=== PATIENT | female | born 1970 | race African-American/Black ===

== ENCOUNTER 2016-11-21 14:32 | Emergency (ER) | payer OTHER ==
[2016-11-21] MEDS ORDERED: LIDOCAINE 5% (700 MG) TRANSDERMAL ADH..PATCH TP ONE (15:01)
[2016-11-21 15:44] LABS: ANION GAP 10 (5-19); BLOOD UREA NITROGEN 10 mg/dL (7-20); CALCIUM 9.1 mg/dL (8.4-10.2); CARBON DIOXIDE 29 mmol/L (22-30); CHLORIDE 106 mmol/L (98-107); CREATINE KINASE 176 U/L (30-135); CREATININE RESULT 0.81 mg/dL (0.52-1.25); GLUCOSE 123 mg/dL (75-110); MAGNESIUM 1.8 mg/dL (1.6-2.3); POTASSIUM 4.2 mmol/L (3.6-5.0); SODIUM 145.1 mmol/L (137-145)
--- NOTE | 2016-11-21 16:09 | ER Document Report ---
ED General - General Chief Complaint: Leg Pain Stated Complaint: LEG PAIN TRAVEL OUTSIDE OF THE [place] IN LAST 30 DAYS: No - HPI Patient complains to provider of: right leg cramping pain Notes: Patient states right leg cramping and pain ongoing for approximately one week. Patient does state some increased activity. Patient denies any recent travel denies history of blood clots PE DVT. Patient states pain is behind the knee is up and down her leg. Denies any swelling. - Related Data Allergies/Adverse Reactions: No Known Allergies Allergy (Verified 11/21/16 14:34) Past Medical History - Social History Smoking Status: Unknown if Ever Smoked Family History: Reviewed & Not Pertinent Patient has suicidal ideation: No Patient has homicidal ideation: No Renal/ Medical History: Denies: Hx Peritoneal Dialysis GI Medical History: Reports: Hx Gastroesophageal Reflux Disease Past Surgical History: Reports: Hx Section - x1 - Immunizations Hx Diphtheria, Pertussis, Tetanus Vaccination: Yes Review of Systems - Review of Systems Constitutional: No symptoms reported EENT: No symptoms reported Cardiovascular: No symptoms reported Respiratory: No symptoms reported Gastrointestinal: No symptoms reported Genitourinary: No symptoms reported Female Genitourinary: No symptoms reported Musculoskeletal: Other - Leg pain Skin: No symptoms reported Hematologic/Lymphatic: No symptoms reported Neurological/Psychological: No symptoms reported Physical Exam - Vital signs Vitals: Temp Pulse Resp BP Pulse Ox 98.2 F 84 16 134/80 H 98 11/21/16 14:36 11/21/16 14:36 11/21/16 14:36 11/21/16 14:36 11/21/16 14:36 Interpretation: Normal - General General appearance: Appears well, Alert - HEENT Head: Normocephalic, Atraumatic Eyes: Normal Pupils: PERRL - Respiratory Respiratory status: No respiratory distress Chest status: Nontender Breath sounds: Normal Chest palpation: Normal - Cardiovascular Rhythm: Regular Heart sounds: Normal auscultation Murmur: No - Abdominal Inspection: Normal Distension: No distension Bowel sounds: Normal Tenderness: Nontender Organomegaly: No organomegaly - Back Back: Normal, Nontender - Extremities General upper extremity: Normal inspection, Nontender, Normal color, Normal ROM , Normal temperature General lower extremity: Normal color, Normal ROM, Normal temperature, Normal weight bearing, Other - Please refer to nursing notes for measurements of the legs. Mild tenderness to the fossa of the knee.. No: Erin's sign Left calf in cm: 40 Right calf in cm: 41 - Neurological Neuro grossly intact: Yes Cognition: Normal Orientation: AAOx4 [place] Coma Scale Eye Opening: Spontaneous [place] Coma Scale Verbal: Oriented [place] Coma Scale Motor: Obeys Commands [place] Coma Scale Total: 15 Speech: Normal Motor strength normal: LUE, RUE, LLE, RLE Sensory: Normal - Psychological Associated symptoms: Normal affect, Normal mood - Skin Skin Temperature: Warm Skin Moisture: Dry Skin Color: Normal Course - Re-evaluation Re-evalutation: 11/21/16 16:32 Bedside ultrasound shows compressibility of the popliteal vein behind the right knee. No signs of DVT. Lab work shows elevated sodium mildly elevated CK. Spent patient more likely dehydration will be the etiology of her cramping. Patient is to follow-up with her primary care physician patient was given a prescription of Flexeril warnings were given to the patient patient discharged home - Vital Signs Vital signs: Temp Pulse Resp BP Pulse Ox 98.2 F 84 16 134/80 H 98 11/21/16 14:36 11/21/16 14:36 11/21/16 14:36 11/21/16 14:36 11/21/16 14:36 - Laboratory Result Diagrams: 11/21/16 15:07 Laboratory results interpreted by me: 11/21/16 15:07 Sodium 145.1 H Glucose 123 H Creatine Kinase 176 H Discharge - Discharge Clinical Impression: Leg pain Qualifiers: Laterality: unspecified laterality Qualified Code(s): M79.606 - Pain in leg, unspecified Condition: Good Disposition: HOME, SELF-CARE Instructions: Leg Cramps ([facility]), Leg Pain Nonspecific ([facility]) Additional Instructions: Your laboratory today shows signs of dehydration. More likely etiology of your leg cramps and pain Please be sure you drink plenty of water to stay hydrated. You may take medication as prescribed. Please be aware that the Flexeril will make you sleepy. Otherwise you may take Tylenol Motrin for pain. Bedside ultrasound today shows no signs of DVT either. Prescriptions: Cyclobenzaprine HCl [Flexeril 10 mg Tablet] 10 mg PO TIDP PRN #15 tab PRN Reason: Forms: Return to Work
[2016-11-21 16:32] VITALS: BP 126/61
== END 2016-11-21 16:13 | disposition home or self-care (01) ==
LOC: ER 14:32
DX: M79.604 Pain in right leg (principal); R25.2 Cramp and spasm
CPT/HCPCS: 36415; 80048; 82550; 83735; 99283

== ENCOUNTER 2017-07-10 13:45 | Emergency (ER) | payer OTHER ==
[2017-07-10 14:07] VITALS: BP 131/71
--- NOTE | 2017-07-10 15:47 | ER Document Report ---
ED Extremity Problem, Lower - General Chief Complaint: Leg Pain Stated Complaint: LEG PAIN Time Seen by Provider: 07/10/17 15:01 Mode of Arrival: Ambulatory Information source: Patient Notes: 46-year-old female presents to ED for complaint of pain and cramping in her right calf up to her knee. She states it has been occurring intermittently. She states that the pain is worse when she goes on a trip such as a bus ride. She states she went to [place] this weekend. She states she has not seen her primary care doctor for this pain. She was also seen in the emergency room for similar complaints in November. Was instructed to follow-up with her primary doctor. TRAVEL OUTSIDE OF THE [place] IN LAST 30 DAYS: No - HPI Patient complains to provider of: Pain Location: Leg - Right calf Occurred: Last week Onset/Duration: Intermittent Quality of pain: Cramping Severity: Moderate Pain Level: 4 Recent injury: No Associated symptoms: Painful ambulation Exacerbated by: Other - When riding on trips Relieved by: Nothing - Related Data Allergies/Adverse Reactions: No Known Allergies Allergy (Verified 07/10/17 14:07) Past Medical History - General Information source: Patient - Social History Smoking Status: Never Smoker Cigarette use (# per day): No Chew tobacco use (# tins/day): No Frequency of alcohol use: None Drug Abuse: None Lives with: Family Family History: Reviewed & Not Pertinent Patient has suicidal ideation: No Patient has homicidal ideation: No - Past Medical History Cardiac Medical History: Reports: None Pulmonary Medical History: Reports: None EENT Medical History: Reports: None Neurological Medical History: Reports: None Endocrine Medical History: Reports: None Renal/ Medical History: Reports: None Malignancy Medical History: Reports: None GI Medical History: Reports: Hx Gastroesophageal Reflux Disease Musculoskeltal Medical History: Reports None Skin Medical History: Reports None Psychiatric Medical History: Reports: None Traumatic Medical History: Reports: None Infectious Medical History: Reports: None Past Surgical History: Reports: Hx Section - x1 - Immunizations Immunizations up to date: Yes Hx Diphtheria, Pertussis, Tetanus Vaccination: Yes Review of Systems - Review of Systems Constitutional: No symptoms reported EENT: No symptoms reported Cardiovascular: No symptoms reported Respiratory: No symptoms reported Gastrointestinal: No symptoms reported Genitourinary: No symptoms reported Female Genitourinary: No symptoms reported Musculoskeletal: Other - Right calf and leg pain and cramping Skin: No symptoms reported Hematologic/Lymphatic: No symptoms reported Neurological/Psychological: No symptoms reported -: Yes All other systems reviewed and negative Physical Exam - Vital signs Vitals: Temp Pulse Resp BP Pulse Ox 98.7 F 72 16 131/71 H 98 07/10/17 14:03 07/10/17 14:03 07/10/17 14:03 07/10/17 14:03 07/10/17 14:03 Interpretation: Normal - General General appearance: Appears well, Alert - HEENT Head: Normocephalic, Atraumatic Eyes: Normal Pupils: PERRL - Respiratory Respiratory status: No respiratory distress Chest status: Nontender Breath sounds: Normal Chest palpation: Normal - Cardiovascular Rhythm: Regular Heart sounds: Normal auscultation Murmur: No - Abdominal Inspection: Normal Distension: No distension Bowel sounds: Normal Tenderness: Nontender Organomegaly: No organomegaly - Back Back: Normal, Nontender - Extremities General upper extremity: Normal inspection, Nontender, Normal color, Normal ROM , Normal temperature General lower extremity: Normal inspection, Normal color, Normal ROM, Normal temperature, Normal weight bearing. No: Erin's sign Calf: Tender - Right calf, Other - Legs are equal in size mild edema to both legs no redness or inflammation Ankle: Edema - Bilateral Foot: Edema - Bilateral - Neurological Neuro grossly intact: Yes Cognition: Normal Orientation: AAOx4 [place] Coma Scale Eye Opening: Spontaneous [place] Coma Scale Verbal: Oriented [place] Coma Scale Motor: Obeys Commands [place] Coma Scale Total: 15 Speech: Normal Motor strength normal: LUE, RUE, LLE, RLE Sensory: Normal - Psychological Associated symptoms: Normal affect, Normal mood - Skin Skin Temperature: Warm Skin Moisture: Dry Skin Color: Normal Course - Re-evaluation Re-evalutation: 07/10/17 22:15 Venous Doppler negative to the right lower leg. D-dimer was 0.6. Patient was discharged home with a copy of her labs and her d-dimer reports that she can follow-up with her primary doctor. - Vital Signs Vital signs: Temp Pulse Resp BP Pulse Ox 98.7 F 72 16 131/71 H 98 07/10/17 14:03 07/10/17 14:03 07/10/17 14:03 07/10/17 14:03 07/10/17 14:03 - Laboratory Result Diagrams: 07/10/17 15:33 Laboratory results interpreted by me: 07/10/17 15:33 D-Dimer 0.60 H - Diagnostic Test Radiology reviewed: Image reviewed, Reports reviewed Discharge - Discharge Clinical Impression: Cramps of right lower extremity Condition: Stable Disposition: HOME, SELF-CARE Additional Instructions: Leg Cramps There are many causes of leg cramps. Most of the time, there is no underlying serious medical condition. Calf muscle cramps that occur at rest or during the night are a nuisance, but are usually not caused by any serious medical problem. Leg cramps that occur during exercise (walking, stair climbing) can be caused by poor circulation. Cramping is more likely to occur if the legs swell. Over-exercise or overheating can cause muscle spasms even with good circulation. Cramp-like muscle pain can be an early symptom of blood clots in the lower leg. Sometimes cramping is due to a previous muscle injury. Occasionally cramping is a symptom of dehydration or of low levels of sodium, potassium, calcium or magnesium. When a cramp occurs, stretch gently and massage the cramped muscle. Get enough fluids, potassium, and sodium for the muscle to work normally. Avoid strenuous exercise for several days if you've been having frequent leg cramps. Medicines such a quinine may be helpful in some patients with night cramps. Call the doctor or return if you develop redness, swelling, bruising, or increased pain in the leg, or if the foot becomes cold, numb, pale, or discolored. Acetaminophen Acetaminophen may be taken for pain relief or fever control. It's much safer than aspirin, offering a wider range of "safe" dosages. It is safe during . Some brand names are Tylenol, Panadol, Datril, Anacin 3, Tempra, and Liquiprin. Acetaminophen can be repeated every four hours. The following are maximum recommended dosages: WEIGHT Dose Drops Elixir Chewable( 80mg) (LBS.) drprs=droppers tsp=teaspoon 6 40 mg .4 ml (1/2) 6-11 80 mg .8 ml (full) 1/2 tsp 1 tab 12-16 120 mg 1 1/2 drprs 3/4 tsp 1 1/2 tabs 17-23 160 mg 2 drprs 1 tsp 2 tabs 24-30 240 mg 3 drprs 1 1/2 tsp 3 tabs 30-35 320 mg 2 tsp 4 tabs 36-41 360 mg 2 1/4 tsp 4 1 /2 tabs 42-47 400 mg 2 1/2 tsp 5 tabs 48-53 480 mg 3 tsp 6 tabs 54-59 520 mg 3 1/4 tsp 6 1 /2 tabs 60-64 560 mg 3 1/2 tsp 7 tabs 65-70 600 mg 3 3/4 tsp 7 1 /2 tabs 71-76 640 mg 4 tsp 8 tabs 77-82 720 mg 4 1/2 tsp 9 tabs 83-88 800 mg 5 tsp 10 tabs >89 pounds or adults 650 mg to 900 mg Acetaminophen can be repeated every four hours. Maximum daily dose not to exceed 4000 mg. These maximum recommended dosages are slightly higher than the dosages written on the product container, but these dosages are very safe and well below the toxic dosage for acetaminophen. Elevate the legs Elevation will be helpful to reduce swelling. Elevate the legs to above the level of your heart this will help to return the fluid to your heart from your legs. A copy of your venous Doppler report and your lab reports have been given to you for you to follow-up with your primary doctor. Please take these with you to your primary doctor appointment. FOLLOW-UP CARE: If you have been referred to a physician for follow-up care, call the physician s office for an appointment as you were instructed or within the next two days. If you experience worsening or a significant change in your symptoms, notify the physician immediately or return to the Emergency Department at any time for re-evaluation. Forms: Elevated Blood Pressure Referrals: JENS ODEN MD [Primary Care Provider] - Follow up as needed
[2017-07-10 16:06] LABS: ANION GAP 11 (5-19); BLOOD UREA NITROGEN 10 mg/dL (7-20); CARBON DIOXIDE 27 mmol/L (22-30); CHLORIDE 104 mmol/L (98-107); CREATININE RESULT 0.74 mg/dL (0.52-1.25); GLUCOSE 87 mg/dL (75-110); POTASSIUM 4.1 mmol/L (3.6-5.0); SODIUM 142.2 mmol/L (137-145)
--- NOTE | 2017-07-10 18:46 | RADIOLOGY REPORT (SQ) ---
EXAM DESCRIPTION: VENOUS UNILATERAL LOWER COMPLETED DATE/TIME: 07/10/2017 6:36 pm REASON FOR STUDY: pain to right lower leg d dimer .6 COMPARISON: None. TECHNIQUE: Dynamic and static heller scale and color images acquired of the right leg venous system. S elected spectral images acquired with additional compression and augmentation maneuvers. The contrala teral common femoral vein and saphenofemoral junction were also imaged. Images stored on PACS. LIMITATIONS: None. FINDINGS: COMMON FEMORAL: Normal phasicity, compression and augmentation. No visualized echogenic ma terial on heller scale. No defects on color images. FEMORAL: Normal compression and augmentation. No visualized echogenic material on heller scale. No defe cts on color images. POPLITEAL: Normal compression, augmentation. No visualized echogenic material on heller scale. No defec ts on color images. CALF VESSELS: Normal compression, augmentation. No visualized echogenic material on heller scale. No de fects on color images. GSV and SSV: Normal compression, augmentation. No visualized echogenic material on heller scale. No def ects on color images. ANY DEEP VENOUS INSUFFICIENCY: Not evaluated. ANY EVIDENCE OF POPLITEAL CYST: No. OTHER: No other significant finding. CONTRALATERAL COMMON FEMORAL VEIN AND SAPHENOFEMORAL JUNCTION: Normal phasicity, compression and augmentation. No visualized echogenic material on heller scale. No de fects on color images. IMPRESSION: NO EVIDENCE DVT OR SVT IN THE RIGHT LEG. TECHNICAL DOCUMENTATION: JOB ID: [id number] [employer]- All Rights Reserved
== END 2017-07-10 19:24 | disposition home or self-care (01) ==
LOC: ER 13:45
DX: R25.2 Cramp and spasm (principal); M79.604 Pain in right leg
CPT/HCPCS: 36415; 80048; 85379; 93971; 99284

== ENCOUNTER 2018-10-20 20:34 | Emergency (ER) | payer OTHER ==
[2018-10-20] MEDS ORDERED: METOCLOPRAMIDE HCL INJ/PF 10 MG/2 ML SDV IV ONE (23:21)
[2018-10-20 23:40] LABS: ABSOLUTE EOSINOPHILS # (AUTO) 0.1 10^3/uL (0.0-0.6); ABSOLUTE MONOCYTES (AUTO) 0.7 10^3/uL (0.1-1.4); ABSOLUTE NEUT (AUTO) 4.1 10^3/uL (1.7-8.2); BASOPHILS % (AUTO) 0.2 % (0-2); EOSINOPHILS % (AUTO) 1.2 % (0-6); HEMATOCRIT 36.2 % (36.0-47.0); HEMOGLOBIN 11.9 g/dL (12.0-15.5); LYMPHOCYTES % (AUTO) 29.8 % (13-45); MEAN CORPUSCULAR HEMOGLOBIN 26.9 pg (27.0-33.4); MEAN CORPUSCULAR HGB CONC 32.9 g/dL (32.0-36.0); MEAN CORPUSCULAR VOLUME 82 fl (80-97); MONOCYTES % (AUTO) 9.7 % (3-13); PLATELET COUNT 371 10^3/uL (150-450); RED BLOOD COUNT 4.43 10^6/uL (3.72-5.28); RED CELL DISTRIBUTION WIDTH 15.9 % (11.5-14.0); SEGMENTED NEUTROPHILS % (AUTO) 59.1 % (42-78); TOTAL CELLS COUNTED % (AUTO) 100 %; WHITE BLOOD COUNT 6.9 10^3/uL (4.0-10.5)
[2018-10-20 23:57] LABS: ANION GAP 8 (5-19); BLOOD UREA NITROGEN 14 mg/dL (7-20); CALCIUM 9.3 mg/dL (8.4-10.2); CARBON DIOXIDE 27 mmol/L (22-30); CHLORIDE 103 mmol/L (98-107); GLUCOSE 106 mg/dL (75-110)
[2018-10-21] MEDS ORDERED: MECLIZINE HCL 25 MG TABLET PO ONE (01:05)
--- NOTE | 2018-10-21 01:06 | ER Document Report ---
ED General - General Chief Complaint: Headache Stated Complaint: SEVERE HEADACHES,DIZZINESS Time Seen by Provider: 10/20/18 23:20 Primary Care Provider: JENS ODEN MD [Primary Care Provider] - Follow up in 3-5 days Notes: Patient is a 48-year-old female without chronic medical problems presents with 2 weeks of multiple complaints. Her first complaint is a sensation of feeling like she is on a boat where she feels somewhat unsteady or like she is moving when she is not. She states this can occur randomly whether she is sitting standing or active. She states that it happened tonight while at [facility] ompting her to come to the emergency department. She also notes intermittent headaches particular after she eats salty food. She describes these as global, throbbing, mild to severe headaches similar to when she has had headaches in the past. These headaches do spontaneously resolve without treatment. She also notes that she frequently has a nighttime cough and feels that she has postnasal drip. Also notes an abnormal taste in her mouth particularly at night. She denies any focal weakness, numbness, difficulty walking, visual changes, or confusion. No history of similar symptoms in the past. Has not seen her primary care physician regarding today's concerns. TRAVEL OUTSIDE OF THE [place] IN LAST 30 DAYS: No - Related Data Allergies/Adverse Reactions: No Known Allergies Allergy (Verified 07/10/17 14:07) Past Medical History - General Information source: Patient - Social History Smoking Status: Never Smoker Frequency of alcohol use: None Drug Abuse: None Lives with: Spouse/Significant other Family History: Reviewed & Not Pertinent Renal/ Medical History: Denies: Hx Peritoneal Dialysis GI Medical History: Reports: Hx Gastroesophageal Reflux Disease Past Surgical History: Reports: Hx Section - x1 - Immunizations Immunizations up to date: Yes Hx Diphtheria, Pertussis, Tetanus Vaccination: Yes Review of Systems - Review of Systems Notes: Constitutional: Negative for fever. HENT: Positive for nasal congestion Eyes: Negative for visual changes. Cardiovascular: Negative for chest pain. Respiratory: Negative for shortness of breath. Gastrointestinal: Negative for abdominal pain, vomiting or diarrhea. Genitourinary: Negative for dysuria. Musculoskeletal: Negative for back pain. Skin: Negative for rash. Neurological: Positive for headaches, positive for sensation of movement 10 point ROS negative except as marked above and in HPI. Physical Exam - Vital signs Vitals: Temp Pulse Resp BP Pulse Ox 98.2 F 76 18 149/69 H 100 10/20/18 20:50 10/20/18 20:50 10/20/18 20:50 10/20/18 20:50 10/20/18 20:50 Interpretation: Hypertensive Notes: PHYSICAL EXAMINATION: GENERAL: Well-appearing, well-nourished and in no acute distress. HEAD: Atraumatic, normocephalic. EYES: Pupils equal round and reactive to light, extraocular movements intact, sclera anicteric, conjunctiva are normal. ENT: nares patent, oropharynx clear without exudates. Moist mucous membranes. NECK: Normal range of motion, supple without lymphadenopathy LUNGS: Breath sounds clear to auscultation bilaterally and equal. No wheezes rales or rhonchi. HEART: Regular rate and rhythm without murmurs ABDOMEN: Soft, nontender, normoactive bowel sounds. No guarding, no rebound. No masses appreciated. EXTREMITIES: Normal range of motion, no pitting or edema. No cyanosis. NEUROLOGICAL: Face symmetric. Tongue protrudes midline. Extraocular motions intact. Pupils are 2 mm and equally reactive. Normal speech, normal gait. 5 out of 5 strength in both the distal and proximal upper and lower extremities bilaterally. Sensation is grossly intact throughout. Finger to nose testing normal. Pronator drift normal. PSYCH: Normal mood, normal affect. SKIN: Warm, Dry, normal turgor, no rashes or lesions noted. Course - Re-evaluation Re-evalutation: 10/21/18 01:03 Presentation of vertigo that appears most consistent with a benign peripheral vertigo. Patient has no abnormal findings on exam. Normal cerebellar testing, steady even gait. Able to walk on heels and toes. Normal proprioception. Patient is not an elevated risk for a cerebellar infarction given age, absence of significant risk factors. Patient did have improvement of symptoms here in the emergency department with meclizine. Suspect likely acute vestibular neuritis versus sinus issues. I do not believe neurologic imaging is indicated at this time based on physical examination and clinical history. At this time will discharge with return precautions and follow-up recommendations. Verbal discharge instructions given a the bedside and opportunity for questions given. Medication warnings reviewed. Patient is in agreement with this plan and has verbalized understanding of return precautions and the need for primary care follow-up in the next 24-72 hours. - Vital Signs Vital signs: Temp Pulse Resp BP Pulse Ox 98.3 F 74 16 134/67 H 97 10/21/18 01:15 10/21/18 01:15 10/21/18 01:15 10/21/18 01:15 10/21/18 01:15 - Laboratory Result Diagrams: 10/20/18 23:30 10/20/18 23:30 Laboratory results interpreted by me: 10/20/18 23:30 Hgb 11.9 L MCH 26.9 L RDW 15.9 H Discharge - Discharge Clinical Impression: Vertigo Vestibular neuritis Qualifiers: Laterality: bilateral Qualified Code(s): H81.23 - Vestibular neuronitis, bi lateral Sinusitis Qualifiers: Sinusitis location: unspecified location Chronicity: acute Recurrence: not specified as recurrent Qualified Code(s): J01.90 - Acute sinusitis, unspecified Allergic rhinitis Qualifiers: Allergic rhinitis trigger: unspecified Allergic rhinitis seasonality: unspecified Qualified Code(s): J30.9 - Allergic rhinitis, unspecified Condition: Good Disposition: HOME, SELF-CARE Additional Instructions: You were seen today for lightheadedness/dizziness. The exact cause of your symptoms is unclear but your workup here is reassuring without any concerning findings. Please follow closely with your primary care physician in the next 1- 3 days. Take cetirizine 10 mg daily, Flonase as directed on box instructions. You may purchase these medications directed [id number]. Use the meclizine which have been prescribed as needed for a sensation of abnormal movement. Return if you pass out, have additional episodes of lightheadedness, develop weakness/numbness, have persistent vomiting, chest pain, shortness of breath or any other symptoms that are concerning to you Prescriptions: Meclizine HCl [Motion Relief] 25 mg PO Q6HP PRN #30 tablet PRN Reason: Referrals: JENS ODEN MD [Primary Care Provider] - Follow up in 3-5 days
[2018-10-21 01:16] VITALS: BP 134/67
== END 2018-10-21 01:39 | disposition home or self-care (01) ==
LOC: ER 20:34
DX: H81.23 Vestibular neuronitis, bilateral (principal); J01.90 Acute sinusitis, unspecified; J30.9 Allergic rhinitis, unspecified; R51 Headache; R05 Cough; R09.82 Postnasal drip; R09.81 Nasal congestion
CPT/HCPCS: 36415; 80048; 84703; 85025; 99284

== ENCOUNTER 2019-08-19 20:55 | Emergency (ER) | payer OTHER ==
[2019-08-19] MEDS ORDERED: ASPIRIN 81 MG TABLET, CHEWABLE PO ONE (21:40)
--- NOTE | 2019-08-19 21:43 | ER Document Report ---
ED Medical Screen (RME) - General Chief Complaint: Shortness Of Breath Stated Complaint: DIFFICULTY BREATHING Time Seen by Provider: 08/19/19 21:40 Primary Care Provider: JENS ODEN MD [Primary Care Provider] - Follow up as needed Mode of Arrival: Wheelchair Information source: Patient Notes: 49-year-old female presented to ED for complaint of shortness of breath intermittent chest tightness for a month and a half. She saw her PCM before and is scheduled a cardiology appointment on Tuesday. She states tonight she had tightness in her chest just before coming to the emergency room as well as increasing shortness of breath. She decided she needed to come in and get checked out as this was worse than normal. She is prediabetic and is on metformin 500 mg a day and one baby aspirin a day. States she does not smoke drink or use any kind of illicit drugs. She does live with her family. I have greeted and performed a rapid initial assessment of this patient. A comprehensive ED assessment and evaluation of the patient, analysis of test results and completion of medical decision making process will be conducted by an additional ED providers. TRAVEL OUTSIDE OF THE [place] IN LAST 30 DAYS: No - Related Data Allergies/Adverse Reactions: No Known Allergies Allergy (Verified 07/10/17 14:07) Past Medical History Renal/ Medical History: Denies: Hx Peritoneal Dialysis GI Medical History: Reports: Hx Gastroesophageal Reflux Disease Past Surgical History: Reports: Hx Section - x1 - Immunizations Immunizations up to date: Yes Hx Diphtheria, Pertussis, Tetanus Vaccination: Yes Physical Exam - Vital signs Vitals: Temp Pulse Resp BP Pulse Ox 98.9 F 78 20 150/76 H 100 08/19/19 20:59 08/19/19 20:59 08/19/19 20:59 08/19/19 20:59 08/19/19 20:59 Course - Vital Signs Vital signs: Temp Pulse Resp BP Pulse Ox 98.9 F 78 20 150/76 H 100 08/19/19 20:59 08/19/19 20:59 08/19/19 20:59 08/19/19 20:59 08/19/19 20:59 Doctor's Discharge - Discharge Referrals: JENS ODEN MD [Primary Care Provider] - Follow up as needed
--- NOTE | 2019-08-19 22:30 | RADIOLOGY REPORT (SQ) ---
EXAM DESCRIPTION: XR CHEST 2 VIEWS COMPLETED DATE/TME: 08/19/2019 21:40 CLINICAL HISTORY: 49 years, Female, short of breath chest tightness COMPARISON: None. NUMBER OF VIEWS: Two TECHNIQUE: Frontal and lateral radiograph are obtained LIMITATIONS: None. FINDINGS: Cardiac and mediastinal contours are normal. Lungs are clear. No pleural effusion or pneumothorax. IMPRESSION: No acute disease. copyright 2010 [employer]- All Rights Reserved
[2019-08-19 22:53] LABS: ABSOLUTE BASOPHILS # (AUTO) 0.1 10^3/uL (0.0-0.2); ABSOLUTE EOSINOPHILS # (AUTO) 0.1 10^3/uL (0.0-0.6); ABSOLUTE LYMPHOCYTES (AUTO) 2.9 10^3/uL (0.5-4.7); ABSOLUTE MONOCYTES (AUTO) 0.7 10^3/uL (0.1-1.4); BASOPHILS % (AUTO) 0.8 % (0-2); EOSINOPHILS % (AUTO) 0.9 % (0-6); HEMATOCRIT 39.2 % (36.0-47.0); HEMOGLOBIN 12.9 g/dL (12.0-15.5); LYMPHOCYTES % (AUTO) 29.3 % (13-45); MEAN CORPUSCULAR HGB CONC 32.9 g/dL (32.0-36.0); MEAN CORPUSCULAR VOLUME 85 fl (80-97); MONOCYTES % (AUTO) 7.6 % (3-13); RED BLOOD COUNT 4.61 10^6/uL (3.72-5.28); SEGMENTED NEUTROPHILS % (AUTO) 61.4 % (42-78); TOTAL CELLS COUNTED % (AUTO) 100 %; WHITE BLOOD COUNT 9.8 10^3/uL (4.0-10.5)
[2019-08-19 23:10] LABS: ALBUMIN 4.1 g/dL (3.5-5.0); ALKALINE PHOSPHATASE 64 U/L (38-126); ANION GAP 11 (5-19); ASPARTATE AMINO TRANSFERASE 17 U/L (14-36); BILIRUBIN,DIRECT 0.3 mg/dL (0.0-0.4); BILIRUBIN,TOTAL 0.4 mg/dL (0.2-1.3); BLOOD UREA NITROGEN 16 mg/dL (7-20); CALCIUM 9.2 mg/dL (8.4-10.2); CARBON DIOXIDE 25 mmol/L (22-30); CHLORIDE 103 mmol/L (98-107); GLUCOSE 98 mg/dL (75-110); TOTAL PROTEIN 7.9 g/dL (6.3-8.2)
[2019-08-19 23:23] LABS: PLATELET COUNT 224 10^3/uL (150-450)
--- NOTE | 2019-08-19 23:41 | ER Document Report ---
ED General - General Chief Complaint: Shortness Of Breath Stated Complaint: DIFFICULTY BREATHING Time Seen by Provider: 08/19/19 21:40 Primary Care Provider: JENS ODEN MD [Primary Care Provider] - Follow up as needed Mode of Arrival: Wheelchair Information source: Patient TRAVEL OUTSIDE OF THE [place] IN LAST 30 DAYS: No - HPI Onset: Other - over the last 2-3 months Onset/Duration: Gradual Quality of pain: Pressure Severity: Moderate Pain Level: 2 Associated symptoms: Nausea, Shortness of breath Exacerbated by: Other - exertion Relieved by: Other - rest Similar symptoms previously: No Recently seen / treated by doctor: Yes - patient saw her PCP before and referred to Cards - apt in 2 days Notes: 49 year old female with a history of HTN and Obesity here for 1-2 months of spells of shortness of breath along with some chest tightness/squeezing. The patient says the spells are happening more frequently and are nearly every day now. The patient denies radiation of the chest tightness. The patient saw her PCP before and she had an EKG showing sinus bradycardia and she was referred to Cardiology but her appointment isnt for 2 days and today she felt worse so she came to the ER. The patient had some mild nausea today with the SOB and chest pressure. The patient denies fevers, chills, sweats, vomiting, cough. - Related Data Allergies/Adverse Reactions: No Known Allergies Allergy (Verified 07/10/17 14:07) Home Medications: asa 81 mg qday. metformin 500 mg qday Past Medical History - General Information source: Patient - Social History Smoking Status: Never Smoker Frequency of alcohol use: None Drug Abuse: None Lives with: Family Family History: Reviewed & Not Pertinent Patient has suicidal ideation: No Patient has homicidal ideation: No Endocrine Medical History: Reports: Hx Diabetes Mellitus Type 2 Renal/ Medical History: Denies: Hx Peritoneal Dialysis GI Medical History: Reports: Hx Gastroesophageal Reflux Disease Past Surgical History: Reports: Hx Section - x1 - Immunizations Immunizations up to date: Yes Hx Diphtheria, Pertussis, Tetanus Vaccination: Yes Review of Systems - Review of Systems Cardiovascular: Chest pain Respiratory: Short of breath Gastrointestinal: Nausea -: Yes All other systems reviewed and negative Physical Exam - Vital signs Vitals: Temp Pulse Resp BP Pulse Ox 98.9 F 78 20 150/76 H 100 01/05/20 20:59 08/19/19 20:59 08/19/19 20:59 08/19/19 20:59 08/19/19 20:59 - Notes Notes: GENERAL: Well-appearing, well-nourished and in no acute distress. HEAD: Atraumatic, normocephalic. EYES: Pupils equal round and reactive to light, extraocular movements intact, sclera anicteric, conjunctiva are normal. ENT: TMs normal, nares patent, oropharynx clear without exudates. Moist mucous membranes. NECK: Normal range of motion, supple without lymphadenopathy or JVD. LUNGS: Breath sounds clear to auscultation bilaterally and equal. No wheezes rales or rhonchi. HEART: Regular rate and rhythm without murmurs, rubs or gallops. ABDOMEN: Soft, nontender, normoactive bowel sounds. No guarding, no rebound. No masses appreciated. EXTREMITIES: Normal range of motion, no pitting or edema. No clubbing or cyanosis. NEUROLOGICAL: Cranial nerves II through XII grossly intact. Normal speech, normal gait. PSYCH: Normal mood, normal affect. SKIN: Warm, Dry, normal turgor, no rashes or lesions noted. Course - Re-evaluation Re-evalutation: 08/20/19 01:50 The patient is here for several months of shortness of breath spells which now seem to have a component of chest pressure/tightness with them. The patient is PERC Negative making PE unlikely. The patient has DM but otherwise no other CAD risk factors. The patient is describing symptoms which could be concerning for CAD however so I encouraged her to follow up as she is scheduled to do so this Tuesday with Cardiology. The patient should have an outpatient cardiac stress test and she was told this. No need to admit today based on her exam and work up. - Vital Signs Vital signs: Temp Pulse Resp BP Pulse Ox 98.9 F 78 21 H 117/52 L 100 08/19/19 20:59 08/19/19 20:59 08/20/19 01:02 08/20/19 01:02 08/20/19 01:02 - Laboratory Result Diagrams: 08/19/19 22:36 08/19/19 22:36 Laboratory results interpreted by me: 08/19/19 08/19/19 22:36 22:36 RDW 15.0 H TSH 5.07 H - Diagnostic Test Radiology reviewed: Image reviewed, Reports reviewed - no acute process - EKG Interpretation by Me EKG shows normal: Sinus rhythm, [place] - normal, Intervals - normal, QRS Complexes - normal, ST-T Waves - normal Rate: Normal Discharge - Discharge Clinical Impression: Shortness of breath, Chest pain Disposition: HOME, SELF-CARE Instructions: Chest Pain of Unclear Cause ([facility]) Additional Instructions: Follow up with a [employer] as scheduled and discuss your symptoms and ER visit today. You had blood work, an EKG and a chest xray which were all within normal limits. You should have an outpatient cardiac stress test based on your symptoms however. Return to an ER for persistent chest pain, chest pain which radiates to your arms of jaw, or chest pain with nausea and vomiting or if you are worse. Referrals: JENS ODEN MD [Primary Care Provider] - Follow up as needed
[2019-08-20 02:03] VITALS: BP 127/69
--- NOTE | 2019-08-20 06:43 | EKG REPORT ---
SEVERITY:- NORMAL ECG - SINUS RHYTHM : Confirmed by: Oren Rodriguez MD 20-Aug-2019 06:41:55
== END 2019-08-20 02:24 | disposition home or self-care (01) ==
LOC: ER 20:55
DX: R06.02 Shortness of breath (principal); R07.9 Chest pain, unspecified; R06.00 Dyspnea, unspecified; R11.0 Nausea
CPT/HCPCS: 36415; 71046; 80053; 83690; 83880; 84443; 84484; 84703; 85025; 93005; 93010; 99285

== ENCOUNTER 2019-09-10 10:14 | Day surgery (SDC) | payer OTHER ==
[~2019-09-10 10:14] MED LIST: LIDOCAINE 2% INJ-PF (20 MG/ML) 10 ML AMPUL ONE; PROPOFOL INJ 200 MG/20 ML VIAL IV ONE
[2019-09-10 12:01] VITALS: BP 112/81
--- NOTE | 2019-09-10 12:18 | Operative Report ---
Operative Report DATE OF SURGERY: 09/10/19 Operative Report: Risk, benefits and alternatives of the procedure including the risk of bleeding, perforation requiring surgery have been explained to the patient in detail and informed consent has been obtained. Patient is taken back to the endoscopy suite and placed in a left, lateral decubital position. Timeout was called. Propofol medication is administered. Rectal examination is done which did not reveal any masses, tears or fissures. An Olympus videoscope was introduced into the patient's rectum. Scope was then carefully advanced all the way to the cecum. Cecum was identified by the usual anatomical landmarks including the ileocecal valve as well as the appendiceal office. Photodocumentation is obtained. The scope was then sequentially pulled back via the various segments of the colon including the ascending colon, hepatic flexure, transverse colon, splenic flexure, descending colon finding to the rectosigmoid portions of the colon. Retroflexion maneuvers performed. The risks benefits and alternatives of the procedure explained to the patient in detail and informed consent is obtained.A GIF Olympus video scope was inserted into the patient's mouth and hypopharynx, the esophagus is identified intubated and insufflated, the scope was then advanced through the esophagus stomach and duodenum, retroflexion maneuver is done, the esophagus stomach and first and second portions of the duodenum examined PREOPERATIVE DIAGNOSIS: Encounter for colorectal cancer screening. Anemia rule out GI bleed POSTOPERATIVE DIAGNOSIS: Colon polyp removed via biopsy forceps. Internal hemorrhoids. Gastritis status post biopsy without Helicobacter pylori. Duodenitis status post biopsy rule out celiac disease OPERATION: Colonoscopy with biopsy. EGD with biopsy SURGEON: MANPREET VILLARREAL ANESTHESIA: LMAC TISSUE REMOVED OR ALTERED: As noted above. COMPLICATIONS: None. ESTIMATED BLOOD LOSS: None. INTRAOPERATIVE FINDINGS: As noted above. PROCEDURE: Patient tolerated the procedure well. No immediate postprocedure complications are noted. Patient is discharged in good condition. Discharge date 09/10/2019. Discharge diet: Regular. Discharge activity: Regular. 2 to 3-week follow-up to discuss findings. Patient is instructed to call the office or proceed to the emergency room should there be any further problems or questions. Wait on the pathology. 5-year surveillance colonoscopy.
== END 2019-09-10 12:14 | disposition home or self-care (01) ==
LOC: END 10:14
PROVIDERS: ATTEND Internal Medicine Gastroenterology
DX: Z12.11 Encounter for screening for malignant neoplasm of colon (principal); D12.3 Benign neoplasm of transverse colon; K64.8 Other hemorrhoids; K29.80 Duodenitis without bleeding; K29.50 Unspecified chronic gastritis without bleeding; D64.9 Anemia, unspecified
CPT/HCPCS: 43239; 45380; 82962; 88342 ×2; 88305 ×2; 00813; J2704; J3490; 813

== ENCOUNTER → 2020-03-12 | Outpatient (CLI) | payer OTHER ==
[2020-03-12 14:13] LABS: ALBUMIN 4.3 g/dL (3.5-5.0); ALKALINE PHOSPHATASE 63 U/L (38-126); ASPARTATE AMINO TRANSFERASE 18 U/L (14-36); BILIRUBIN,TOTAL 0.6 mg/dL (0.2-1.3); CHOLESTEROL 177.39 mg/dL (0-200); TOTAL PROTEIN 7.8 g/dL (6.3-8.2); TRIGLYCERIDES 91 mg/dL (<150)
[2020-03-12 14:23] LABS: DIRECT LDL 117 mg/dL (<100)
== END ==
LOC: OD 12:49
PROVIDERS: ATTEND Physician Assistant
DX: E78.5 Hyperlipidemia, unspecified (principal); Z79.899 Other long term (current) drug therapy
CPT/HCPCS: 36415; 80061; 80076

== ENCOUNTER → 2020-06-30 | Outpatient (CLI) | payer OTHER ==
[2020-06-30 13:41] LABS: ALKALINE PHOSPHATASE 69 U/L (38-126); ANION GAP 8 (5-19); ASPARTATE AMINO TRANSFERASE 18 U/L (14-36); BILIRUBIN,DIRECT 0.2 mg/dL (0.0-0.4); BILIRUBIN,TOTAL 0.6 mg/dL (0.2-1.3); BLOOD UREA NITROGEN 10 mg/dL (7-20); CALCIUM 9.4 mg/dL (8.4-10.2); CARBON DIOXIDE 27 mmol/L (22-30); CHLORIDE 104 mmol/L (98-107); CHOLESTEROL 136.61 mg/dL (0-200); GLUCOSE 97 mg/dL (75-110); POTASSIUM 4.6 mmol/L (3.6-5.0); TOTAL PROTEIN 7.2 g/dL (6.3-8.2); TRIGLYCERIDES 46 mg/dL (<150)
[2020-06-30 13:52] LABS: DIRECT LDL 85 mg/dL (<100)
== END ==
LOC: OD 11:36
PROVIDERS: ATTEND Physician Assistant
DX: E78.5 Hyperlipidemia, unspecified (principal); R07.9 Chest pain, unspecified; Z79.899 Other long term (current) drug therapy
CPT/HCPCS: 36415; 80048; 80061; 80076

== ENCOUNTER 2020-07-29 13:10 | Emergency (ER) | payer OTHER ==
--- NOTE | 2020-07-29 13:42 | ER Document Report ---
ED Medical Screen (RME) - General Chief Complaint: Shortness Of Breath Stated Complaint: SHORT OF BREATH,CHEST PAIN Time Seen by Provider: 07/29/20 13:39 Primary Care Provider: ALLA SMITH PA-C [Primary Care Provider] - Follow up as needed Notes: HPI: 49-year-old female with history of high cholesterol, CAD presenting for shortness of breath and left-sided chest pain with some dizziness. Patient was diagnosed Covid +5 days ago. Had symptoms started 8 days ago with runny nose flulike symptoms. Has not had a cough or shortness of breath until today. Woke up today with increased shortness of breath and left-sided chest discomfort. Patient states yesterday she had a dizzy episode when she got up. Patient states she has been laying in the bed for the last few days. Patient states she was diagnosed by her PCP 5 days ago and was placed on amoxicillin and Ashley-D PHYSICAL EXAMINATION: Lung sounds are clear to auscultation regular rate and rhythm. Very slight reproducible pain on palpation of the left upper chest wall I have greeted and performed a rapid initial assessment of this patient. A comprehensive ED assessment and evaluation of the patient, analysis of test results and completion of medical decision making process will be conducted by an additional ED providers. TRAVEL OUTSIDE OF THE [place] IN LAST 30 DAYS: No - Related Data Allergies/Adverse Reactions: No Known Allergies Allergy (Verified 07/29/20 13:32) Past Medical History - Past Medical History Cardiac Medical History: Denies: Hx Coronary Artery Disease, Hx Heart Attack, Hx Hypertension Pulmonary Medical History: Denies: Hx Asthma, Hx Bronchitis, Hx COPD, Hx Pneumonia Neurological Medical History: Denies: Hx Cerebrovascular Accident, Hx Seizures Endocrine Medical History: Reports: Hx Diabetes Mellitus Type 2 Renal/ Medical History: Denies: Hx Peritoneal Dialysis GI Medical History: Reports: Hx Gastroesophageal Reflux Disease Musculoskeltal Medical History: Denies Hx Arthritis Past Surgical History: Reports: Hx Section - x1 - Immunizations Immunizations up to date: Yes Hx Diphtheria, Pertussis, Tetanus Vaccination: Yes Physical Exam - Vital signs Vitals: Temp Pulse Resp BP Pulse Ox 98.3 F 72 20 143/69 H 97 07/29/20 13:22 07/29/20 13:22 07/29/20 13:22 07/29/20 13:22 07/29/20 13:22 Course - Vital Signs Vital signs: Temp Pulse Resp BP Pulse Ox 98.3 F 72 20 143/69 H 97 07/29/20 13:22 07/29/20 13:22 07/29/20 13:22 07/29/20 13:22 07/29/20 13:22 Doctor's Discharge - Discharge Referrals: ALLA SMITH, PAWalterC [Primary Care Provider] - Follow up as needed
--- NOTE | 2020-07-29 14:23 | RADIOLOGY REPORT (SQ) ---
EXAM DESCRIPTION: CHEST SINGLE VIEW IMAGES COMPLETED DATE/TIME: 07/29/2020 2:13 pm REASON FOR STUDY: chest pain COMPARISON: None. NUMBER OF VIEWS: One view. TECHNIQUE: Single frontal radiographic view of the chest acquired. LIMITATIONS: None. FINDINGS: LUNGS AND PLEURA: No opacities, masses or pneumothorax. No pleural effusion. MEDIASTINUM AND HILAR STRUCTURES: No masses. Contour normal. HEART AND VASCULAR STRUCTURES: Heart normal in size. Normal vasculature. BONES: No acute findings. HARDWARE: None in the chest. OTHER: No other significant finding. IMPRESSION: NO SIGNIFICANT RADIOGRAPHIC FINDING IN THE CHEST. TECHNICAL DOCUMENTATION: JOB ID: [id number] 2010 [employer]- All Rights Reserved Reading location - IP/workstation name: [email or web address]
[2020-07-29 15:29] LABS: ABSOLUTE EOSINOPHILS # (AUTO) 0.1 10^3/uL (0.0-0.6); ABSOLUTE LYMPHOCYTES (AUTO) 1.4 10^3/uL (0.5-4.7); ABSOLUTE MONOCYTES (AUTO) 0.4 10^3/uL (0.1-1.4); ABSOLUTE NEUT (AUTO) 2.7 10^3/uL (1.7-8.2); BASOPHILS % (AUTO) 0.2 % (0-2); EOSINOPHILS % (AUTO) 1.3 % (0-6); HEMATOCRIT 38.5 % (36.0-47.0); HEMOGLOBIN 13.2 g/dL (12.0-15.5); LYMPHOCYTES % (AUTO) 31.2 % (13-45); MEAN CORPUSCULAR HEMOGLOBIN 29.4 pg (27.0-33.4); MEAN CORPUSCULAR HGB CONC 34.3 g/dL (32.0-36.0); MEAN CORPUSCULAR VOLUME 86 fl (80-97); PLATELET COUNT 295 10^3/uL (150-450); RED BLOOD COUNT 4.49 10^6/uL (3.72-5.28); RED CELL DISTRIBUTION WIDTH 14.2 % (11.5-14.0); SEGMENTED NEUTROPHILS % (AUTO) 59.3 % (42-78); TOTAL CELLS COUNTED % (AUTO) 100 %; WHITE BLOOD COUNT 4.6 10^3/uL (4.0-10.5)
[2020-07-29 15:48] LABS: ALKALINE PHOSPHATASE 64 U/L (38-126); ANION GAP 6 (5-19); ASPARTATE AMINO TRANSFERASE 21 U/L (14-36); BILIRUBIN,DIRECT 0.1 mg/dL (0.0-0.4); BILIRUBIN,TOTAL 0.5 mg/dL (0.2-1.3); BLOOD UREA NITROGEN 13 mg/dL (7-20); CALCIUM 9.2 mg/dL (8.4-10.2); CARBON DIOXIDE 30 mmol/L (22-30); CHLORIDE 103 mmol/L (98-107); GLUCOSE 128 mg/dL (75-110); TOTAL PROTEIN 7.5 g/dL (6.3-8.2)
--- NOTE | 2020-07-29 17:18 | ER Document Report ---
ED General - General Chief Complaint: Breathing Difficulty Stated Complaint: SHORT OF BREATH,CHEST PAIN Time Seen by Provider: 07/29/20 13:39 Primary Care Provider: ALLA SMITH PA-C [PHYSICIAN [employer]] - Follow up as needed TRAVEL OUTSIDE OF THE [place] IN LAST 30 DAYS: No - HPI Notes: Chief Complaint: Historian: History obtained from patient HPI: This is a ROS: Constitutional: no fevers. HEENT: no BENITEZ, sore throat, or vision changes. CV: no chest pain or palpitations. Resp: no cough or SOB. GI: no abdominal pain, or n/v/d. : no dysuria, hematuria, or incont. MSK: no back pain, no joint swelling/redness. Skin: no rashes or itching. Neuro: no seizures, weakness, numbness, or confusion. Hematological: no ecchymosis or easy bleeding. Endocrine: no polyuria/polydipsia, no heat/cold intolerance. Psych: no SI/HI, AH/VH or memory loss. PMHx: Reviewed and agree as charted by RN. PSHx: Reviewed and agree as charted by RN. SOCHx: Reviewed and agree as charted by RN. FHX: No significant familial comorbid conditions directly related to patient complaint Current Medications: Reviewed and agree with the patient medications as charted by the RN. Allergies: Reviewed and agree with the listed allergies as charted by the RN Physical Exam: Vitals: Reviewed in chart as documented by RN. General: Alert and in NAD. Head: Normocephalic; atraumatic Eyes: PERRLA, Conjunctivae clear sclerae non-icteric bilat ENT: no soft palate swelling or uvular deviation Neck: trachea midline, no unilateral swelling/tenderness/lymphadenopathy CV: RRR, no M/R/G; symmetric distal pulses Resp: respirations even and unlabored, CTA bilat. GI: abd soft and nondistended. NTTP. normal BS. no masses/HSM. no CVAT bilat MSK: FROM of all extremities. No midline CTL spine tenderness/deformity Skin: warm, moist, good turgor. no rash/lesions Neuro: Alert and oriented X 4. following CN 2-12 intact. no unilateral weakness/numbness Psych: No SI/HI or AH/VH. ED Results: Medical Decision-Making: Diagnosis: Condition: Disposition: - Related Data Allergies/Adverse Reactions: No Known Allergies Allergy (Verified 07/29/20 13:32) Home Medications: atorvastatin. amoxicillin. gerrous sulfate. ezetimibe. metformin. metoprolol succ Past Medical History - Social History Smoking Status: Never Smoker Chew tobacco use (# tins/day): No Frequency of alcohol use: None Drug Abuse: None Family History: Reviewed & Not Pertinent Patient has homicidal ideation: No - Past Medical History Cardiac Medical History: Reports: Hx Hypercholesterolemia Denies: Hx Coronary Artery Disease, Hx Heart Attack, Hx Hypertension Pulmonary Medical History: Denies: Hx Asthma, Hx Bronchitis, Hx COPD, Hx Pneumonia Neurological Medical History: Denies: Hx Cerebrovascular Accident, Hx Seizures Endocrine Medical History: Reports: Hx Diabetes Mellitus Type 2 Renal/ Medical History: Denies: Hx Peritoneal Dialysis GI Medical History: Reports: Hx Gastroesophageal Reflux Disease Musculoskeletal Medical History: Denies Hx Arthritis Past Surgical History: Reports: Hx Section - x1 - Immunizations Immunizations up to date: Yes Hx Diphtheria, Pertussis, Tetanus Vaccination: Yes Physical Exam - Vital signs Vitals: Temp Pulse Resp BP Pulse Ox 98.3 F 72 20 143/69 H 97 07/29/20 13:22 07/29/20 13:22 07/29/20 13:22 07/29/20 13:22 07/29/20 13:22 Course - Vital Signs Vital signs: Temp Pulse Resp BP Pulse Ox 98.0 F 66 18 119/73 100 07/29/20 15:57 07/29/20 15:57 07/29/20 15:57 07/29/20 15:57 07/29/20 15:58 - Laboratory Results Result Diagrams: 07/29/20 14:47 07/29/20 14:47 Laboratory Results Interpreted: 07/29/20 07/29/20 14:47 14:47 RDW 14.2 H Glucose 128 H Critical Laboratory Results Reviewed: No Critical Results - Radiology Results Critical Radiology Results Reviewed: No Critical Results Discharge - Discharge Clinical Impression: Dyspnea due to COVID-19 Condition: Stable Disposition: HOME, SELF-CARE Instructions: COVID-19 Guidance for Persons Under Investigation Additional Instructions: take medications as prescribe. you can get a home pulse oximeter to put on your finger to see what your oxygen levels are. make sure to stay hydrated and continue to quarantine at home. monitor your blood sugars since steroids can increase them. return to the ER if your worsen. follow up with your doctor in 2- 3 days for recheck Prescriptions: Prednisone [Deltasone 20 mg Tablet] 1 tab PO BID 5 Days #10 tablet Forms: Return to Work Referrals: ALLA SMITH PA-C [PHYSICIAN [employer]] - Follow up as needed
[2020-07-29 17:56] VITALS: BP 132/70
--- NOTE | 2020-07-30 01:58 | EKG REPORT ---
SEVERITY:- NORMAL ECG - SINUS RHYTHM : Confirmed by: Evie Herman MD 30-Jul-2020 01:58:25
== END 2020-07-29 17:51 | disposition home or self-care (01) ==
LOC: ER 13:10
DX: U07.1 COVID-19 (principal); R06.09 Other forms of dyspnea; R07.9 Chest pain, unspecified; E78.00 Pure hypercholesterolemia, unspecified; E11.9 Type 2 diabetes mellitus without complications
CPT/HCPCS: 36415; 71045; 80053; 84484; 85025; 93005; 93010; 99285

== ENCOUNTER → 2020-08-22 | Outpatient (CLI) | payer OTHER ==
[2020-08-22 08:06] LABS: ALBUMIN 3.9 g/dL (3.5-5.0); ALKALINE PHOSPHATASE 70 U/L (38-126); ASPARTATE AMINO TRANSFERASE 20 U/L (14-36); BILIRUBIN,DIRECT 0.2 mg/dL (0.0-0.4); BILIRUBIN,TOTAL 0.4 mg/dL (0.2-1.3); CHOLESTEROL 177.07 mg/dL (0-200); TOTAL PROTEIN 7.4 g/dL (6.3-8.2); TRIGLYCERIDES 80 mg/dL (<150)
[2020-08-22 08:18] LABS: DIRECT LDL 116 mg/dL (<100)
== END ==
LOC: OD 07:06
PROVIDERS: ATTEND Internal Medicine Cardiovascular Disease
DX: E78.5 Hyperlipidemia, unspecified (principal); Z79.899 Other long term (current) drug therapy
CPT/HCPCS: 36415; 80061; 80076